=== PATIENT | male | born 2000 | race Caucasian/White ===

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

== ENCOUNTER 2021-01-04 08:34 | Outpatient (CLI) | payer SELFPAY ==
--- NOTE | 2021-01-04 08:44 | US_ITS ---
WS: [id number] Complete ABDOMINAL ULTRASOUND HISTORY: HEMOPTYSIS/UNINTENTIONAL WEIGHT LOSS COMPARISON: None available. Liver: 17.5 cm in length. Liver is normal size and echogenicity with no mass or intrahepatic dilatati on. Gallbladder: Normally distended with no gallstones, wall thickening or pericholecystic fluid. Gallbladder wall thickness: 0.2 cm. Pancreas: Normal size and echogenicity. CBD: 0.5 cm. Right kidney: 10.8 cm x 5.5 cm x 3.3 cm. No mass, cortical thickening or hydronephrosis. Left kidney: 10.1 cm x 4.7 cm x 3.6 cm. No mass, cortical thickening or hydronephrosis. Spleen: Normal size and echogenicity. Abdominal aorta and IVC are within normal limits. No ascites. US/US abdomen complete* [id number] IMPRESSION: Normal complete abdomen ultrasound.
== END 2021-01-04 08:35 | disposition home or self-care (01) ==
LOC: RAD 08:36
PROVIDERS: PCP Family Medicine; Visit Provider Family Medicine
DX: R04.2 Hemoptysis (principal); R63.4 Abnormal weight loss
CPT/HCPCS: 76700

== ENCOUNTER 2023-04-26 02:44 | Emergency (ER) | payer SELFPAY ==
[2023-04-26 02:49] VITALS: BP 123/90; PULSE 71; RESP 17; TEMP 36.9; O2SAT 98; BMI 21.7
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
== END 2023-04-26 03:00 | disposition home or self-care (01) ==
PROVIDERS: Emergency Provider Emergency Medicine; PCP Family Medicine
DX: T16.2XXA Foreign body in left ear, initial encounter (principal); W26.8XXA Contact with other sharp object(s), not elsewhere classified, initial encounter; W45.8XXA Other foreign body or object entering through skin, initial encounter; W22.8XXA Striking against or struck by other objects, initial encounter
CPT/HCPCS: 99282